=== PATIENT | female | born 1955 | race Caucasian/White ===

== ENCOUNTER → 2017-08-25 | Outpatient (CLI) | payer OTHER ==
--- NOTE | 2017-08-25 17:43 | RADIOLOGY REPORT PS360 ---
US PELVIS-TRANSVAGINAL ONLY HISTORY: Dysfunctional uterine bleeding, postmenopausal bleeding DUB ORDERING PHYSICIAN: Linette Zuleta MD PATIENT AGE: 62 years COMPARISON: 10/11/2012 FINDINGS: The uterus measures 8.4 x 4.8 x 6.2 cm and is retroverted. The myometrial thickness is 9 mm just slightly prominent for a postmenopausal patient. Right ovary is 1.8 x 1 cm. Left ovary is 1.7 x 1.8 cm. No adnexal mass. Bilateral ovarian blood flow is present. No cul-de-sac fluid. IMPRESSION: Mildly thickened endometrium within a retroverted uterus
--- NOTE | 2017-08-28 09:07 | RADIOLOGY REPORT PS360 ---
DIG MAMM-SCREEN [facility] W/CAD CAD Screening COMPARISON: Digital mammograms 11/14/2014 and 01/15/2016 INDICATION: There is a history of breast cancer in patient's sister diagnosed at age 40 TECHNIQUE: Standard CC and MLO images were obtained. R2 CAD reviewed. FINDINGS: There is a diffusely dense and heterogenic parenchymal pattern somewhat lessening the sensitivity of mammography. There is no new or suspicious lesion in either breast and no suspicious microcalcifications. IMPRESSION: Diffusely dense parenchymal pattern no suspicious lesion seen recommend yearly follow-up BI-RADS CATEGORY: 1_Negative RECOMMENDED FOLLOWUP: 12M 12 MONTH FOLLOW-UP (A letter has been sent to the patient regarding results of the study.)
== END ==
LOC: RAD 14:31
DX: Z12.31 Encounter for screening mammogram for malignant neoplasm of breast (principal); N64.9 Disorder of breast, unspecified; N93.8 Other specified abnormal uterine and vaginal bleeding
CPT/HCPCS: G0202